=== PATIENT | female | born 1945 | race Two or more races ===

== ENCOUNTER 2017-07-04 12:12 | Emergency (ER) | payer MEDICAID ==
[~2017-07-04] VITALS: Ht 160 cm; Wt 95.3 kg
[~2017-07-04 12:12] MED LIST: ACCUPRIL5 MG ORAL; ASPIR 8181 MG ORAL; Insulin; LIPITOR20 MG ORAL; NORVASC2.5 MG ORAL; NOVOLIN R100 UNIT/1 SUBQ; POTASSIUM99 M2 PO; TYLENOL 8 HOUR650 M1 ORAL
[2017-07-04 12:24] VITALS: BP 111/64
--- NOTE | 2017-07-04 12:50 | Emergency Room Report ---
History of Present Illness General Chief Complaint: Pain Source: Patient Present Illness HPI 71-year-old female no significant past medical history presenting with left ankle pain for 3 weeks. Denies any known trauma. Patient has been able to walk on it but with slight limp. Patient has still been taking Motrin with some relief no Other complaints Allergies: Coded Allergies: No Known Allergies (Unverified , 07/04/17) Patient History Past Medical History: see triage record Past Surgical History: none Pertinent Family History: none Reviewed Nursing Documentation: PMH: Agreed, PSxH: Agreed Nursing Documentation-PMH Hx Hypertension: Yes Hx COPD: Yes Hx Diabetes: Yes Review of Systems All Other Systems: negative except mentioned in HPI Physical Exam Vital Signs Date Time Temp Pulse Resp B/P (MAP) Pulse Ox O2 Delivery O2 Flow Rate FiO2 07/04/17 12:14 97.9 77 18 111/64 96 Room Air Sp02 EP Interpretation: reviewed, normal General Appearance: normal inspection, well appearing, no apparent distress, alert, GCS 15, non-toxic Head: normocephalic, atraumatic Eyes: bilateral eye normal inspection, bilateral eye PERRL, bilateral eye EOMI ENT: normal ENT inspection, normal pharynx, normal voice, moist mucus membranes Neck: normal inspection, full range of motion, supple Respiratory: normal inspection, lungs clear, normal breath sounds, no respiratory distress, no retraction, no wheezing, speaking full sentences, chest symmetrical Cardiovascular #1: normal inspection, regular rate, rhythm, no edema, normal capillary refill Cardiovascular #2: 2+ radial (R), 2+ radial (L) Gastrointestinal: normal inspection, non tender, soft, non-distended, no guarding Musculoskeletal: other - L ankle mild swelling posterior aspect, able to dorsi and plantar flex without issue, able to bear weight on ankle Neurologic: normal inspection, alert, oriented x3, responsive, motor strength/ tone normal, sensory intact, normal gait, speech normal Psychiatric: normal inspection, judgement/insight normal, memory normal Skin: normal inspection, normal color, no rash, warm/dry, well hydrated, normal turgor Medical Decision Making Diagnostic Impression: Primary Impression: Ankle pain, left ER Course 71-year-old female with left ankle pain for 3 weeks DDX: sprain/strain vs. fracture Plan: Pain control with Tylenol XR ER course: Patient reports improvement of pain with Tylenol WILLIAM bandage applied. Disposition: Patient is to be discharged home Patient educated to rest, ice, and elevate extremity and to avoid vigorous activity. Strict precautions discussed with patient on when to return to the emergency room including increased redness or swelling joints, increased pain/swelling of extremity, fever or chills, which could indicate severe illness. Patient is to follow up with their primary care doctor within 5 days. Patient also instructed to follow up with an orthopedic doctor if continuing to have mild/moderate pain as she may need further outpatient imaging. Patient agrees with plan. Please note that this Emergency Department Report was dictated using [employer] keeper technology software, occasionally this can lead to erroneous entry secondary to interpretation by the dictation equipment. Xray ordered: Left ankle 3 view Indication: Pain EP Interpretation: Yes Interpretation: No dislocation, no soft tissue swelling, no fractures Impression: No acute disease Electronically signed by Hayde Yanez MD Last Vital Signs Date Time Temp Pulse Resp B/P (MAP) Pulse Ox O2 Delivery O2 Flow Rate FiO2 07/04/17 12:24 18 111/64 96 Room Air 07/04/17 12:14 97.9 77 Disposition: HOME, SELF-CARE Condition: Improved Hayde Yanez M.D. Jul 04, 2017 12:50
[2017-07-04 13:35] VITALS: BP 160/65
--- NOTE | 2017-07-05 08:51 | Diagnostic Imaging Report ---
History: Acute pain. Technique: Frontal, lateral, and oblique views of the left ankle are provided. Comparison: No prior study is available for comparison. Findings: Overall bony mineralization is within normal limits. There is no evidence of acute fracture or dislocation. Mild degenerative changes are noted. There is mild superior and inferior calcaneal spurring. Small joint effusion is identified. There is soft tissue swelling along the lateral ankle. Impression: No evidence of acute fracture or dislocation. Lateral ankle soft tissue swelling, small joint effusion and mild degenerative changes noted.
== END 2017-07-04 13:35 | disposition home or self-care (01) ==
LOC: EMR 12:20
DX: M25.572 Pain in left ankle and joints of left foot (principal); J44.9 Chronic obstructive pulmonary disease, unspecified; I10 Essential (primary) hypertension; E11.9 Type 2 diabetes mellitus without complications
CPT/HCPCS: 99283

== ENCOUNTER 2018-08-19 10:49 | Emergency (ER) | payer SELFPAY ==
[~2018-08-19] VITALS: Ht 152.4 cm; Wt 93.4 kg
[2018-08-19 12:00] VITALS: BP 139/82
[2018-08-19 12:07] VITALS: BP 139/82
--- NOTE | 2018-08-19 12:47 | Emergency Room Report ---
History of Present Illness General Chief Complaint: Laceration Source: Patient Present Illness HPI Patient present with trauma to the mid forehead just between the eyebrows Patient reports that a pottery fell onto her forehead few hours prior to arrival Denies any lapse of consciousness denies any visual changes chest some mild burning at the local area Denies any upper extremity weakness denies any neck pain Allergies: Coded Allergies: No Known Allergies (Unverified , 07/04/17) Patient History Past Medical History: see triage record Pertinent Family History: none Reviewed Nursing Documentation: PMH: Agreed; PSxH: Agreed Nursing Documentation-PMH Past Medical History: No History, Except For Hx Hypertension: Yes Hx COPD: Yes Hx Diabetes: Yes Review of Systems All Other Systems: negative except mentioned in HPI Physical Exam Vital Signs Date Time Temp Pulse Resp B/P (MAP) Pulse Ox O2 Delivery O2 Flow Rate FiO2 08/19/18 11:00 97.5 80 19 154/78 97 Room Air Sp02 EP Interpretation: reviewed, normal General Appearance: well appearing, no apparent distress Head: other - Superficial approximately 1 cm laceration mid forehead, mild ecchymosis Eyes: bilateral eye PERRL ENT: hearing grossly normal, normal pharynx Neck: full range of motion, supple Respiratory: lungs clear, normal breath sounds Cardiovascular #1: regular rate, rhythm Gastrointestinal: normal bowel sounds, non tender Genitourinary: no CVA tenderness Musculoskeletal: normal inspection, back normal Neurologic: alert, oriented x3 Psychiatric: mood/affect normal Skin: other - As above Lymphatic: no adenopathy Medical Decision Making Diagnostic Impression: Primary Impression: Laceration Additional Impression: head injury ER Course Patient did not have any lapse of consciousness there is no other secondary associated hematoma Has a benign neurological exam I did not feel patient met criteria for imaging the area was cleansed and prepped otherwise Total of proximally 1 cm in length of laceration fairly well approximated and superficial therefore Dermabond was applied over the top with good approximation Patient tolerated the procedure well And is stable for close outpatient follow-up Last Vital Signs Date Time Temp Pulse Resp B/P (MAP) Pulse Ox O2 Delivery O2 Flow Rate FiO2 08/19/18 12:07 97.5 79 19 139/82 99 Room Air Status: improved Disposition: HOME, SELF-CARE Condition: Improved Referrals: NOT CHOSEN IPA/MD,REFERRING (PCP) Patient Instructions: Head Injury, Adult, Facial Laceration Additional Instructions: Patient is provided with the discharge instructions notified to follow up with primary doctor in the next 2-3 days otherwise return to the er with any worsening symptoms. Please note that this report is being documented using [employer] technology. This can lead to erroneous entry secondary to incorrect interpretation by the dictating instrument. Mono Alex DO Aug 19, 2018 12:47
== END 2018-08-19 12:07 | disposition home or self-care (01) ==
LOC: EMR 11:39
DX: S01.81XA Laceration without foreign body of other part of head, initial encounter (principal); W20.8XXA Other cause of strike by thrown, projected or falling object, initial encounter; Y92.89 Other specified places as the place of occurrence of the external cause; I10 Essential (primary) hypertension; E11.9 Type 2 diabetes mellitus without complications; J44.9 Chronic obstructive pulmonary disease, unspecified
CPT/HCPCS: 99283